=== PATIENT | female | born 1980 | race Caucasian/White ===

== ENCOUNTER → 2019-06-13 | Outpatient (CLI) | payer BC ==
[2019-06-13 10:38] LABS: Basophils % (A) 0 %; Eosinophils # (A) 0.3 k/uL (0-0.7); Eosinophils % (A) 4 %; HGB 12.4 gm/dL (11.4-16.0); Lymphocytes # (A) 1.1 k/uL (1.0-4.8); Lymphocytes % (A) 17 %; MCH 28.9 pg (25.0-35.0); MCHC 31.8 g/dL (31.0-37.0); MCV 90.9 fL (80.0-100.0); Mean Platelet Volume 7.3; Monocytes # (A) 0.4 k/uL (0-1.0); Monocytes % (A) 6 %; Neutrophils # (A) 4.5 k/uL (1.3-7.7); Neutrophils % (A) 71 %; Platelet Count 228 k/uL (150-450); RBC 4.29 m/uL (3.80-5.40); RDW 14.6 % (11.5-15.5); WBC 6.4 k/uL (3.8-10.6)
== END ==
LOC: LABPAT 10:14
PROVIDERS: ATTEND Obstetrics & Gynecology
DX: Z01.812 Encounter for preprocedural laboratory examination (principal)
CPT/HCPCS: 36415; 85025

== ENCOUNTER 2019-06-16 05:59 | Day surgery (SDC) | payer BC ==
[2019-06-12 15:17] VITALS: BMI 24.3
--- NOTE | 2019-06-15 19:14 | P.HPOB ---
History of Present Illness H&P Date: 06/15/19 Chief Complaint: Menorrhagia with irregular cycle, family-planning This is a 39-year-old female 2 para 2 who presents for dilation and curettage with hysteroscopy and NovaSure endometrial ablation for menorrhagia with irregular cycle along with laparoscopic bilateral tubal ligation via fulguration for family planning. Her menses are heavy for at least 1-2 days and lasting at least 7 days along with coming every 24-26 days. She also experiences a lot of back pain before her menses. She would like definitive surgical treatment to control her bleeding issues and at the same time would like a tubal ligation for family planning. Pelvic ultrasound showed uterus measuring 10.2 x 5.3 x 4.7 cm with endometrial thickness of 8 mm. Both ovaries appeared normal. Obstetrical history: . History of 2 deliveries. Gynecologic history: No history of sexually transmitted diseases. She currently uses withdrawal method for control. Social history: She is . She has a stable partner since 2013. She works at a [employer]. Review of Systems Constitutional: Denies chills, Denies fever Eyes: denies blurred vision, denies pain Ears, nose, mouth and throat: Denies headache, Denies sore throat Cardiovascular: Denies chest pain, Denies shortness of breath Respiratory: Denies cough Gastrointestinal: Denies abdominal pain, Denies diarrhea, Denies nausea, Denies vomiting Genitourinary: Reports menorrhagia Menstruation: Reports period heavy Musculoskeletal: Reports low back pain Integumentary: Denies pruritus, Denies rash Neurological: Denies numbness, Denies weakness Psychiatric: Denies anxiety, Denies depression Past Medical History Additional Past Medical History / Comment(s): PAINFUL IRREG. MENSES History of Any Multi-Drug Resistant Organisms: None Reported Past Surgical History: Section (2) Additional Past Surgical History / Comment(s): Laparoscopy with lysis of adhesions- January/2011 Past Anesthesia/Blood Transfusion Reactions: No Reported Reaction Past Psychological History: No Psychological Hx Reported Smoking Status: Current every day smoker Past Alcohol Use History: Occasional Past Drug Use History: None Reported - Past Family History Mother Family Medical History: No Reported History Medications and Allergies Home Medications Medication Instructions Recorded Confirmed Type No Known Home Medications 06/12/19 06/12/19 History Allergies Allergy/AdvReac Type Severity Reaction Status Date / Time No Known Allergies Allergy Verified 06/12/19 15:04 Exam Osteopathic Statement: *. No significant issues noted on an osteopathic structural exam other than those noted in the History and Physical/Consult. HEENT: Within normal limits Heart: Regular rate and rhythm Lungs: Clear to auscultation bilaterally Abdomen: Soft, nontender Pelvic exam: Uterus is anteverted, nontender, with no adnexal masses or tenderness noted. Extremities: Negative Homans Assessment and Plan (1) Menorrhagia with irregular cycle Status: Acute Code(s): N92.1 - EXCESSIVE AND FREQUENT MENSTRUATION WITH IRREGU LAR CYCLE SNOMED Code(s): 989545714 (2) Family planning Status: Acute Code(s): Z30.09 - ENCOUNTER FOR OTH GENERAL CNSL AND ADVICE ON CONTRACEPTION SNOMED Code(s): 606945797 Plan: Proceed with dilation and curettage with hysteroscopy and NovaSure endometrial ablation along with laparoscopic bilateral tubal ligation via fulguration. I have discussed the risks, benefits, and alternative therapies for the above- mentioned procedure and for both sedation/anesthesia as well as necessary blood products administration, if indicated, as they pertain to this patient. The patient has indicated her understanding and acceptance of the risks and proc edures discussed.
[~2019-06-16 05:59] MED LIST: DEXAMETHASONE SOD PHOSPHATE 10 MG/ML 1 ML VIAL IV ONE; KETOROLAC 30 MG/ML 1 ML VIAL IVP SCH; LACTATED RINGERS 1,000 ML IV SCH; LIDOCAINE 1% 20 ML VIAL (10MG/ML) FOR IV START INTRADERMA PRN; ONDANSETRON 4 MG/2 ML VIAL IVP ONE; ONDANSETRON 4 MG/2 ML VIAL IVP PRN; Pre Op ABX Message 1 EACH MISC MISCELLANE ONE; SCOPOLAMINE 1.5MG/72HR PATCH TRANSDERM ONE
[2019-06-16] MEDS ORDERED: fentaNYL (PF) 50 MCG/ML 2 ML AMP ONE (07:25)
[2019-06-16] MEDS ORDERED: LIDOCAINE 1% INJ 10MG/ML (20 ML MDV) ONE (07:25)
[2019-06-16] MEDS ORDERED: GLYCOPYRROLATE 0.2 MG/ML 2 ML VIAL ONE (07:25)
[2019-06-16] MEDS ORDERED: NEOSTIGMINE 1 MG/ML 10 ML VIAL ONE (07:25)
[2019-06-16] MEDS ORDERED: SUCCINYLCHOLINE CHLORIDE 100 MG/5 ML SYR IV ONE (07:25)
[2019-06-16] MEDS ORDERED: KETOROLAC 30 MG/ML 1 ML VIAL ONE (07:25)
[2019-06-16] MEDS ORDERED: MIDAZOLAM 2 MG/2 ML VIAL ONE (07:25)
[2019-06-16] MEDS ORDERED: ROCURONIUM BROMIDE 10 MG/ML 10 ML VIAL IV ONE (07:25)
[2019-06-16] MEDS ORDERED: PROPOFOL 10 MG/ML 20 ML VIAL IV ONE (07:25)
[2019-06-16] MEDS ORDERED: BUPIVACAINE (PF) 0.25% 30 ML VIAL SQ ONE ×2 (07:30)
--- NOTE | 2019-06-16 08:29 | P.OP ---
Date of Procedure: 06/16/19 Preoperative Diagnosis: Menorrhagia with irregular cycle Family planning Postoperative Diagnosis: Same Procedure(s) Performed: Dilation and curettage with hysteroscopy and NovaSure endometrial ablation Laparoscopic bilateral tubal ligation via fulguration Anesthesia: NILAM Surgeon: Anat Sepulveda Estimated Blood Loss (ml): 5 Pathology: other (Endometrial curettings) Condition: stable Disposition: same day Indications for Procedure: This is a 39-year-old female 2 para 2 who presents for dilation and curettage with hysteroscopy and NovaSure endometrial ablation for menorrhagia with irregular cycle along with laparoscopic bilateral tubal ligation via fulguration for family planning. Her menses are heavy for at least 1-2 days and lasting at least 7 days along with coming every 24-26 days. She also experiences a lot of back pain before her menses. She would like definitive surgical treatment to control her bleeding issues and at the same time would like a tubal ligation for family planning. Pelvic ultrasound showed uterus measuring 10.2 x 5.3 x 4.7 cm with endometrial thickness of 8 mm. Both ovaries appeared normal. Operative Findings: Uterus is anteverted and sounded to 11 cm. Cervix is sounded to 3 cm. Upon hysteroscopy, the patient was noted to be on her menses and visualization was difficult. Both tubal ostia were visualized. A dyssynchronous endometrial pattern was noted. A moderate amount of endometrial curettings were obtained. On laparoscopy, there is a dense omental adhesion to the anterior abdominal wall just above the uterus and the uterus is also adhered to the anterior abdominal wall. Both ovaries appeared normal. The left tube appeared normal. The right tube had a large hydrosalpinx on the end of it. Appendix was visualized and appeared normal. Liver edge appeared clean. Description of Procedure: The patient is taken to the operating room. She is placed in the dorsal lithotomy position after general anesthesia was given. She is prepped and draped in the normal sterile fashion. Bladder is drained with a catheter and then removed. Pelvic exam is performed under anesthesia. Uterus is found to be anteverted with no adnexal masses. She is placed in slight Trendelenburg position. A right angle retractor is used to visualize the cervix. The anterior lip of the cervix is grasped with a single-tooth tenaculum. Cervix is sounded to 3 cm. Uterus is sounded to 11 cm. Cervix is gently dilated with Escobar dilators until a hysteroscope could be passed. Hysteroscopy is performed using normal saline. The above noted findings are noted. Next a polyp forceps is introduced. Minimal amount of tissue was obtained. Next medium-sized size sharp curette was placed. A moderate amount of endometrial curettings were obtained. Next NovaSure array was inserted into the endometrial cavity. Length was set at 6.5 cm and width was determined to be 3.3 cm. Next cavity assessment was completed and passed on the first try. Next NovaSure array was fired at 118 W for 53 seconds. Next the array was removed, inspected and then discarded. Next the hysteroscope was reinserted. Uniform charring was noted. Pictures were taken. Hysteroscope was removed. Next the kroner uterine manipulator was inserted through the cervical os and the balloon was inflated. Single-tooth tenaculum was removed from the anterior lip of the cervix. Minimal bleeding was noted. All other instruments removed from the vagina. Sponge counts were correct. Gloves were changed and attention was turned to the abdomen. The infraumbilical fold was grasped in transverse fashion with 2 Allis clamps. A small transverse incision was made with a scalpel. A hemostat was used to carry the incision down to the underlying layer of fascia. A towel clip was placed above the umbilicus for retraction. A 11 mm disposable bladeless trocar was then inserted into the peritoneal cavity under direct visualization. Once inside, pneumoperitoneum was achieved with CO2 gas. The insert was removed and the camera was placed. Intraperitoneal placement was confirmed. No bleeding was noted. Next the patient was placed in Trendelenburg position. A small stab incision was made suprapubically and a 5 mm disposable bladeless trocar was inserted into the peritoneal cavity under direct visualization just to the left of the omental adhesion. Once inside pelvic contents were inspected. The above noted findings are made. Next a bipolar Kleppinger instrument was placed through the inferior trocar and the midportion of the left tube was brought away from other structures and completely fulgurated on approximate 2-3 cm segment of each tube. Excellent hemostasis was noted. A picture was taken. Due to the large adhesion in the midline, the Kleppinger instrument was not able to reach the right fallopian tube. Therefore another small stab incision was made in the right lower quadrant and another 5 mm disposable bladeless trocar was inserted under direct visualization. This trocar was then used to pass the Kleppinger instrument and the right fallopian tube was grasped and completely fulgurated on approximate 2-3 cm segment of the tube. The right fallopian tube was very dilat ed at the end due to hydrosalpinx and therefore the more proximal portion of the tube was fulgurated. Pictures were taken. Pneumoperitoneum was released after the inferior trocars were removed under direct visualization. The upper trocar was then removed. The fascial incision was closed with 0 Vicryl suture in interrupted [id number] stitch. The skin incisions were then closed with 4- 0 Vicryl suture in a subcuticular fashion. Next the kroner uterine manipulator was removed. Minimal bleeding was noted. All sponge and needle counts are correct. The patient is then taken to recovery room in stable condition.
[2019-06-16] MEDS ORDERED: ONDANSETRON 4 MG/2 ML VIAL IVP ONE (08:35)
[2019-06-16] MEDS: HYDROmorphone 0.5 MG/0.5 ML SYRINGE IVP PRN ×3 (08:36→08:59)
[2019-06-16] MEDS ORDERED: diphenhydrAMINE 50 MG/ML 1 ML VIAL IVP ONE (08:50)
[2019-06-16] MEDS ORDERED: LACTATED RINGERS 1,000 ML IV ONE (09:00)
[2019-06-16] MEDS ORDERED: MEPERIDINE 50 MG/ML SYRINGE IVP ONE (09:12)
[2019-06-16 09:20] VITALS: TEMP 96.9
[2019-06-16 09:21] VITALS: RESP 16
[2019-06-16 10:36] VITALS: BP 104/67; PULSE 52
== END 2019-06-16 10:58 | disposition home or self-care (01) ==
LOC: OR 05:59 → MERGE 07:30 → OR 10:58
PROVIDERS: ATTEND Obstetrics & Gynecology
DX: N92.1 Excessive and frequent menstruation with irregular cycle (principal); N94.6 Dysmenorrhea, unspecified; Z30.2 Encounter for sterilization; N93.8 Other specified abnormal uterine and vaginal bleeding; F17.200 Nicotine dependence, unspecified, uncomplicated
CPT/HCPCS: 81025; 88305; 58563; 58670; J2250; J1200; J1100; J2710; J2175; J2405; J2001; J3010; J1885; J0330; J2704; J1170